=== PATIENT | female | born 1965 | race Caucasian/White ===

== ENCOUNTER 2023-04-19 07:46 | Outpatient (CLI) | payer BC, SELFPAY | END 2023-04-19 07:47 | disposition home or self-care (01) | LOC: WOUND 07:50 | PROVIDERS: PCP Nurse Practitioner; Visit Provider Nurse Practitioner Family | DX: T24.312A Burn of third degree of left thigh, initial encounter (principal); X19.XXXA Contact with other heat and hot substances, initial encounter | CPT/HCPCS: 16020; 99203 ==

== ENCOUNTER 2023-04-26 07:56 | Outpatient (CLI) | payer BC, SELFPAY | END 2023-04-26 07:57 | disposition home or self-care (01) | LOC: WOUND 07:56 | PROVIDERS: PCP Nurse Practitioner; Visit Provider Nurse Practitioner Family | DX: T24.312A Burn of third degree of left thigh, initial encounter (principal); X19.XXXA Contact with other heat and hot substances, initial encounter | CPT/HCPCS: 16020 ==

== ENCOUNTER 2023-05-03 08:03 | Outpatient (CLI) | payer BC, SELFPAY | END 2023-05-03 08:04 | disposition home or self-care (01) | PROVIDERS: PCP Nurse Practitioner; Visit Provider Nurse Practitioner Family | DX: T24.312A Burn of third degree of left thigh, initial encounter (principal); X19.XXXA Contact with other heat and hot substances, initial encounter | CPT/HCPCS: 16020; 99212 ==

== ENCOUNTER 2023-05-10 08:03 | Outpatient (CLI) | payer BC, SELFPAY | END 2023-05-10 08:04 | disposition home or self-care (01) | LOC: WOUND 08:03 | PROVIDERS: PCP Nurse Practitioner; Visit Provider Nurse Practitioner Family | DX: T24.312A Burn of third degree of left thigh, initial encounter (principal); X19.XXXA Contact with other heat and hot substances, initial encounter | CPT/HCPCS: 99212 ==